=== PATIENT | female | born 1995 | race African-American/Black ===

== ENCOUNTER 2023-11-10 18:08 | Emergency (ER) | payer MEDICAID, OTHER ==
[~2023-11-10] VITALS: Ht 167.6 cm; Wt 88.6 kg
[~2023-11-10 18:08] MED LIST: ESCI-8 PO; LURA80TA2 PO; TOPI100T37 PO
[2023-11-10 18:12] VITALS: BP 118/74; PULSE 76; RESP 16; TEMP 98.4
[2023-11-10] MEDS ORDERED: ZIPR20CA38 PO (18:17)
[2023-11-10] MEDS ORDERED: DOXY-354 PO (18:44)
[2023-11-10] MEDS: DOXYCYCLINE HYCLATE 100 MG TABLET PO ONE (18:50)
[2023-11-10] MEDS: BACITRACIN 0.9 GM PACKET OINTMENT TP ONE (18:50)
[2023-11-10] MEDS: PERTUSS(ACELL),DIPH,TET/PF 0.5 ML SYRINGE [ADULT] IM. ONE (18:52)
== END 2023-11-10 19:00 | disposition home or self-care (01) ==
LOC: EMS 18:08
DX: S61.432A Puncture wound without foreign body of left hand, initial encounter (principal); F32.A Depression, unspecified; Z88.0 Allergy status to penicillin; W26.8XXA Contact with other sharp object(s), not elsewhere classified, initial encounter; Y93.89 Activity, other specified; Y92.89 Other specified places as the place of occurrence of the external cause; Y99.8 Other external cause status
CPT/HCPCS: 90471; 90715; 99283

== ENCOUNTER 2024-01-15 22:21 | Emergency (ER) | payer OTHER ==
[~2024-01-15 22:21] MED LIST changes: +DOXY-354 PO; -ESCI-8 PO; -LURA80TA2 PO; -TOPI100T37 PO; +ZIPR20CA38 PO
[2024-01-15 23:30] LABS: APPEARANCE,URINE HAZY (CLEAR); BILIRUBIN,URINE NEGATIVE (NEGATIVE); COLOR,URINE LIGHT YELLOW (YELLOW); GLUCOSE, URINE (UA) NEGATIVE (NEGATIVE); KETONES,URINE NEGATIVE (NEGATIVE); LEUKOCYTE ESTERASE ,URINE LARGE (NEGATIVE); NITRATE,URINE NEGATIVE (NEGATIVE); OCCULT BLOOD,URINE LARGE (NEGATIVE); PROTEIN,URINE 30-70 mg/dL (NEGATIVE); SPECIFIC GRAVITIY, URINE 1.006 (1.003-1.030); UROBILINOGEN,URINE <=1.0 mg/dL (<=1.0)
[2024-01-15 23:33] LABS: HCG,QUAL URINE NEGATIVE (NEGATIVE)
[2024-01-15 23:39] LABS: BACTERIA,URINE Moderate /HPF (None Seen); WBC,URINE 51-100 /HPF (0-5)
[2024-01-16 02:45] LABS: BASOPHILS % (AUTO) 0.3 % (0.0-2.0); EOSINOPHILS % (AUTO) 1.8 % (1.0-6.0); HEMATOCRIT 35.9 % (36-46); HEMOGLOBIN 12.3 g/dL (12.0-16.0); LYMPHOCYTES # (AUTO) 1.6 K/uL (1.0-4.8); LYMPHOCYTES % (AUTO) 12.6 % (22.0-44.0); MEAN CORPUSCULAR HEMOGLOBIN 29.1 pg (26.0-34.0); MEAN CORPUSCULAR HGB CONC 34.1 G/dL (31.0-37.0); MEAN CORPUSCULAR VOLUME 85 fL (80-100); MONOCYTES # (AUTO) 0.6 K/uL (0.1-1.0); NEUTROPHILS # (AUTO) 9.9 K/uL (1.8-7.7); NEUTROPHILS % (AUTO) 80.3 % (40.0-70.0); PLATELET COUNT (AUTO) 279 K/uL (150-450); RED BLOOD CELL COUNT(AUTO) 4.22 MIL/uL (4.00-5.20); RED CELL DISTRIBUTION WIDTH 12.9 % (11.5-14.5); WHITE BLOOD COUNT (AUTO) 12.3 K/uL (4.5-11.0)
[2024-01-16] MEDS: SULFAMETHOX/TRIMETH DS 800-160 MG/TABLET PO ONE (02:46)
[2024-01-16] MEDS: SODIUM CHLORIDE 0.9% 1,000 ML IV ONE (02:56)
[2024-01-16 03:02] LABS: ANION GAP 10 mmol/L (8-16); CALCIUM, TOTAL 8.7 mg/dL (8.8-10.5); CARBON DIOXIDE 26 mmol/L (22-29); CHLORIDE 102 mmol/L (98-107); CREATININE 0.82 mg/dL (0.60-1.30); GLOMERULAR FILTR. RATE CALC > 60 mL/min (>60); GLUCOSE,RANDOM 107 mg/dL (70-110); POTASSIUM 3.9 mmol/L (3.5-5.1); SODIUM SERUM 138 mmol/L (136-145); UREA NITROGEN, BLOOD 12 mg/dL (7-18)
[2024-01-16 03:16] LABS: HCG,QUANTITATIVE 1 mIU/mL (0-6); LIPASE 45 U/L (16-77)
[2024-01-16] MEDS ORDERED: BACTDSB PO (05:19)
== END 2024-01-16 06:24 | disposition home or self-care (01) ==
LOC: EMS 22:21
DX: N39.0 Urinary tract infection, site not specified (principal); R10.2 Pelvic and perineal pain; F32.A Depression, unspecified; Z98.890 Other specified postprocedural states; Z88.0 Allergy status to penicillin
CPT/HCPCS: 99283; 80048; 81001; 83690; 84702; 84703; 85025; 36415; 87086; 87186; 96360; J7030; 96375

== ENCOUNTER 2024-04-06 20:47 | Emergency (ER) | payer OTHER ==
[~2024-04-06] VITALS: Ht 165.1 cm; Wt 94.1 kg
[~2024-04-06 20:47] MED LIST changes: +BACTDSB PO
[2024-04-06 20:54] VITALS: BP 125/75; PULSE 76; RESP 16; TEMP 98.3; O2SAT 96
[2024-04-06 21:51] LABS: ANION GAP 7 mmol/L (8-16); CALCIUM, TOTAL 8.8 mg/dL (8.8-10.5); CARBON DIOXIDE 27 mmol/L (22-29); CHLORIDE 105 mmol/L (98-107); CREATININE 0.73 mg/dL (0.60-1.30); GLOMERULAR FILTR. RATE CALC > 60 mL/min (>60); GLUCOSE,RANDOM 112 mg/dL (70-110); POTASSIUM 3.1 mmol/L (3.5-5.1); SODIUM SERUM 139 mmol/L (136-145); UREA NITROGEN, BLOOD 11 mg/dL (7-18)
[2024-04-06 21:52] LABS: BASOPHILS % (AUTO) 0.1 % (0.0-2.0); EOSINOPHILS % (AUTO) 2.6 % (1.0-6.0); HEMATOCRIT 36.6 % (36-46); HEMOGLOBIN 12.5 g/dL (12.0-16.0); LYMPHOCYTES # (AUTO) 2.4 K/uL (1.0-4.8); LYMPHOCYTES % (AUTO) 29.8 % (22.0-44.0); MEAN CORPUSCULAR HGB CONC 34.1 G/dL (31.0-37.0); MEAN CORPUSCULAR VOLUME 85 fL (80-100); MONOCYTES # (AUTO) 0.5 K/uL (0.1-1.0); MONOCYTES % (AUTO) 6.8 % (2.0-9.0); NEUTROPHILS # (AUTO) 4.9 K/uL (1.8-7.7); NEUTROPHILS % (AUTO) 60.7 % (40.0-70.0); PLATELET COUNT (AUTO) 312 K/uL (150-450); RED BLOOD CELL COUNT(AUTO) 4.31 MIL/uL (4.00-5.20); RED CELL DISTRIBUTION WIDTH 12.6 % (11.5-14.5)
== END 2024-04-06 22:41 | disposition home or self-care (01) ==
LOC: EMS 20:47
DX: A49.02 Methicillin resistant Staphylococcus aureus infection, unspecified site (principal); Z88.0 Allergy status to penicillin
CPT/HCPCS: 80048; 85025; 99283

== ENCOUNTER 2024-06-06 15:17 | Emergency (ER) | payer OTHER ==
[~2024-06-06] VITALS: Ht 170.2 cm; Wt 90.9 kg
[2024-06-06 15:27] VITALS: TEMP 98.8
[2024-06-06 16:00] VITALS: BP 116/69; PULSE 77; RESP 17; O2SAT 98
[2024-06-06] MEDS ORDERED: NEOM10SO24 AD (16:36)
[2024-06-06] MEDS ORDERED: CLIN-26 PO (16:36)
[2024-06-06] MEDS: CLINDAMYCIN HCL 150 MG CAPSULE PO ONE (16:42)
[2024-06-06] MEDS: NEOMYCIN/POLYMYXIN B/HYDROCORT 10 ML OTIC SOLUTION AD ONE (16:52)
== END 2024-06-06 17:26 | disposition home or self-care (01) ==
LOC: EMS 15:18
DX: H60.91 Unspecified otitis externa, right ear (principal); Z88.0 Allergy status to penicillin; Z79.899 Other long term (current) drug therapy
CPT/HCPCS: 99283

== ENCOUNTER 2025-02-04 05:13 | Emergency (ER) | payer OTHER ==
[~2025-02-04] VITALS: Ht 167.6 cm; Wt 90.9 kg
[~2025-02-04 05:13] MED LIST changes: +CLIN-26 PO; +NEOM10SO24 AD
[2025-02-04 05:19] VITALS: BP 122/84; PULSE 78; RESP 14; TEMP 97.9; O2SAT 100
[2025-02-04] MEDS ORDERED: CLIN300C58 PO (07:23)
[2025-02-04] MEDS ORDERED: ACET-66 PO (07:23)
[2025-02-04] MEDS ORDERED: IBUP-1554 PO (07:23)
[2025-02-04] MEDS: IBUPROFEN 600 MG TABLET PO ONE (07:38)
[2025-02-04] MEDS: ACETAMINOPHEN 500 MG TABLET PO ONE (07:38)
== END 2025-02-04 07:55 | disposition home or self-care (01) ==
LOC: EMS 05:13
DX: K04.7 Periapical abscess without sinus (principal); Z88.0 Allergy status to penicillin
CPT/HCPCS: 99284; Z7502; Z7610